=== PATIENT | female | born 1965 | race Caucasian/White ===

== ENCOUNTER 2018-07-30 11:38 | Emergency (ER) | payer OTHER ==
[~2018-07-30] VITALS: Ht 172.7 cm; Wt 74.8 kg
--- NOTE | 2018-07-30 11:55 | NUR ---
DR JEAN AT THE BEDSIDE FOR MSE.
[2018-07-30 12:07] VITALS: BP 120/70
--- NOTE | 2018-07-30 12:08 | NUR ---
Patient discharged to home in stable conditon. Written and verbal after care instructions given. Patient verbalizes understanding of instructions.
== END 2018-07-30 12:08 | disposition home or self-care (01) ==
LOC: ER 11:40
DX: H10.9 Unspecified conjunctivitis (principal)
CPT/HCPCS: A4663